=== PATIENT | male | born 2005 | race Caucasian/White ===

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

== ENCOUNTER 2024-04-28 10:22 | Outpatient (CLI) | payer BC, SELFPAY | END 2024-04-28 10:23 | disposition home or self-care (01) | PROVIDERS: PCP Physician Assistant Medical; Visit Provider Physician Assistant Medical | DX: Z13.29 Encounter for screening for other suspected endocrine disorder (principal); Z13.220 Encounter for screening for lipoid disorders; Z13.228 Encounter for screening for other metabolic disorders | CPT/HCPCS: 80053; 80061; 84443 ==

== ENCOUNTER 2024-05-12 10:00 | Outpatient (CLI) | payer BC, SELFPAY ==
--- NOTE | 2024-05-12 10:15 | MR_ITS ---
[facility] [address] [facility] [address] Phone:?[phone] Fax:?[phone] Referring Physician Information: Eamon Ahumada M.D. [id number] [address] Phone:?[phone] Fax:?[phone] Patient:Alberto Neil D.O.B:?2005 Sex:?Male Phone:?[phone] [facility] MRN:?[id number] Exam Date:?05/12/2024 EXAM: MRI EXAMINATION OF THE LEFT KNEE CLINICAL INFORMATION: Left knee pain. No specific injury. No history of surgery to this area. Evaluate meniscal tear. TECHNICAL INFORMATION: Coronal PD, T2 and STIR. Axial PD and T2 fat saturation. Sagittal PD and T2 fat saturation images acquired. Comparison is made with September 25, 2022. INTERPRETATION: Bones: No appreciable subchondral edema signal or cystic change. No evidence for an occult fracture, osseous contusion or stress reaction. No other abnormal bone marrow edema pattern is identified. Ligaments and tendons: The medial collateral ligament is intact, without acute sprain or tear. The iliotibial band, fibular collateral ligament, biceps femoris tendon and popliteus tendon all are intact. The anterior cruciate ligament is intact without acute sprain or tear. The posterior cruciate ligament is intact. Extensor Mechanism: The patellar and quadriceps tendons are intact. There is a 1.1 cm mediolateral by 0.5 cm craniocaudal moderate grade partial-thickness tear medial to the midportion of the patellar attachment of the patellar tendon. The medial and lateral retinacula are intact. Knee Joint: A small amount of knee joint fluid is borderline for a tiny effusion. No discrete popliteal cyst. No abnormal soft tissue fluid/edema signal to indicate MRI appearance for bursitis about the knee. There is no discrete loose body seen within the joint. Medial Compartment: There is no evidence for discrete medial meniscal tear. No displaced flap fragment or parameniscal cyst. There is no focal chondral defect. No other significant changes of chondromalacia. Lateral Compartment: There is no evidence for discrete lateral meniscal tear. No displaced flap fragment or parameniscal cyst. There is no focal chondral defect. No other significant changes of chondromalacia. Patellofemoral articulation: There is no focal chondral defect. No other significant chondromalacia. CONCLUSION: 1. No evidence for a meniscal tear. 2. The cruciate ligaments are intact. No other residua of a ligament injury involving the knee. 3. The articular cartilage is preserved. 4. Intact appearance of the patellar tendon with proximal tendinopathy. There is a 1.1 x 0.5 cm moderate grade partial-thickness tear involving the patellar attachment of the tendon. 5. A small amount of knee joint fluid is borderline for a tiny effusion. KES Electronically signed on 05/12/2024 12:50:00 PM by Darian Chairez M.D.
== END 2024-05-12 10:01 | disposition home or self-care (01) ==
PROVIDERS: PCP Physician Assistant Medical; Visit Provider Orthopaedic Surgery
DX: M25.562 Pain in left knee (principal); S89.92XA Unspecified injury of left lower leg, initial encounter; G89.29 Other chronic pain
CPT/HCPCS: 73721

== ENCOUNTER 2024-06-28 09:00 | Outpatient (RCR) | payer BC, SELFPAY | END 2024-06-28 09:37 | disposition home or self-care (01) | PROVIDERS: PCP Physician Assistant Medical; Visit Provider Orthopaedic Surgery | DX: M17.12 Unilateral primary osteoarthritis, left knee (principal); M25.862 Other specified joint disorders, left knee; M25.562 Pain in left knee; Z51.89 Encounter for other specified aftercare | CPT/HCPCS: 97110; 97161; 97530 ==